=== PATIENT | female | born 1930 | race Caucasian/White ===

== ENCOUNTER 2017-04-26 12:47 | Emergency (ER) | payer MEDICARE, OTHER ==
[~2017-04-26] VITALS: Ht 152.4 cm; Wt 54.5 kg
[~2017-04-26 12:47] MED LIST: AMLO-39 PO; ATOR20TA PO; CIPR-231 PO; ESTR1TAB24 PO; NITR50CA4 PO; NORE0.3513 PO; OMEG-38 PO; OMEP40CA36 PO
[2017-04-26 13:14] VITALS: BP 139/103; PULSE 69; RESP 14; O2SAT 100
--- NOTE | 2017-04-26 14:11 | ED.REPORT ---
HPI-Abd Pain F 40 and Over Date of Service Apr 26, 2017 ED Provider: Ashley Contreras MD Patient is an 86 year old female with a hx of HTN, hyperlipidemia, and recurrent UTI's who presents to the ED complaining of diarrhea onset 4 days ago. Associated symptoms include abdominal cramping. She denies fever, chills, nausea, vomiting, hematochezia, or any other symptoms. She was recently on Cipro for a UTI. She finished this course about a week ago. Nursing Notes Stated Complaint: FREQUENT DIARRHEA Chief Complaint: Female Abdominal Pain Nursing Notes Reviewed: Yes Allergies: Coded Allergies: amoxicillin (Verified Allergy, Unknown, unknown, 04/26/17) benazepril (Unverified Allergy, Unknown, UNKNOWN, 04/15/15) Scheduled Amlodipine (Norvasc) 5 Mg Tablet 5 MG PO DAILY Atorvastatin (Lipitor) 20 Mg Tablet 20 MG PO DAILY Ciprofloxacin (Cipro) 500 Mg Tablet 500 MG PO BID Estradiol (Estradiol) 1 Mg Tablet 1 MG PO DAILY Nitrofurantoin Macrocrystal (Macrodantin) 50 Mg Capsule 50 MG PO DAILY Norethindrone (Margarita) 0.35 Mg Tablet 0.35 MG PO DAILY [place]-3/Dha/Epa/Fish Oil (Fish Oil 1,000 mg Softgel) 1 Each Capsule 1 EACH PO DAILY Omeprazole (Omeprazole) 40 Mg Capsule.dr 40 MG PO DAILY General Time Seen by MD: 14:06 Chief Complaint Diarrhea mild Hx Obtained From: Patient Arrived By: Walk-in Sudden in Onset?: Yes Onset Occurred: 4 days ago Symptom Duration: Since onset Quality: Cramping Severity: Current: Mild Severity: Maximum: Mild Recent Healthcare: Recent doctor visit Risk Factors )( AAA Risk Stratification Hypertension Risk factors reviewed Past Medical History Past Medical History Chronic UTI's Reports: GERD, Hyperlipidemia, Hypertension Past Surgical History Reports: Tonsillectomy Smoking History Smoker Current Status UNK Social History Other Social History: Good social support, Lives alone Ambulatory Status Independent Review of Systems Constitutional: Denies: Chills, Fever GI: Reports: Abdominal pain, Diarrhea, Denies: Hematochezia, Nausea, Vomiting Complete sys rev & neg: except as marked. Physical Exam Vital Signs Vital Signs (First) Date Time Temp Pulse Resp B/P Pulse Ox O2 Delivery O2 Flow Rate FiO2 04/26/17 13:14 36.4 69 14 139/103 100 Room Air Initial VS: Reviewed, Vital signs normal Head / Eyes: Atraumatic, Normocephalic Neck: Supple, Full range of motion Skin: Warm, Dry Neurologic: Alert, Oriented, Nonfocal Psychiatric: Mood/affect normal, Behavior normal, Normal thought content General/Constitutional: Awake, Alert, No acute distress Respiratory / Chest: Atraumatic, Breath sounds NL, Breath sounds = bilat, No respiratory distress Cardiovascular: Heart rate NL, Regular rhythm, Heart sounds NL Abdomen: Atraumatic, Soft, Non-tender, BS normoactive Back: Atraumatic, Inspection NL, No CVA tenderness Interpretation & Diagnostics Interpretation & Diagnostics: stool PCR entirely normal Re-Eval/Medical Decision Med Decision/Clinical Course 86-year-old woman treated with Cipro recently for an uncomplicated UTI. Started having diarrhea which she describes as 2-3 stools a day. Stool was collected today which was loose and not diarrheal. When asked she says "yes this is what she was concerned about". Re-Evaluation/Progress #1: Time of Eval: 14:15 )( Re-Eval Abdomen: Soft Re-Evaluation/Progress Note: Nurse reports that stool sample was soft stool, not diarrhea. Pt reports this sample is consistent with her stools from the fast 4 days. Re-Evaluation/Progress #2: Time of Eval: 14:57 )( Re-Eval Abdomen: Soft Re-Evaluation/Progress Note: Discussed plan for discharge provided sample is nL. Patient understands and agrees with plan. All questions addressed at this time. Counseled Regarding: Diagnosis, Lab results, Need for follow-up, When/why to return to ED Discharge & Departure Primary Impression: Diarrhea Diarrhea type: unspecified type Qualified Code: R19.7 - Diarrhea, unspecified Disposition: Home Discharge Condition All VS Reviewed: Yes Condition: Stable Patient Instructions: Acute Diarrhea (ED) Additional Instructions: Thank you for entrusting us with your care. I believe your diarrhea may be a direct effect of taking antibiotics- not bacteria associated diarrhea. We did not find a dangerous cause for your symptoms at this time. Follow up with your primary doctor if your symptoms do not resolve. I hope you feel better soon! Referrals: Narendra Pompa MD (PCP) Scribe Attestation Portions of this note were transcribed by Christa Arias. I, Dr. Contreras personally performed the history, physical exam and medical decision-making; I reviewed and confirmed the accuracy of the information in the transcribed note. Signed: Arjun Vanegas, 04/26/17 copies to: Narendra Pompa MD, Shawna L MD Apr 26, 2017 14:11 CHRISTA ARIAS Apr 26, 2017 14:18
[2017-04-26 16:06] VITALS: BP 129/62; PULSE 68; RESP 16; O2SAT 97
== END 2017-04-26 16:18 | disposition home or self-care (01) ==
LOC: SED 12:47
DX: R19.7 Diarrhea, unspecified (principal); R10.9 Unspecified abdominal pain; K21.9 Gastro-esophageal reflux disease without esophagitis; E78.5 Hyperlipidemia, unspecified; Z87.440 Personal history of urinary (tract) infections; Z88.1 Allergy status to other antibiotic agents; Z88.8 Allergy status to other drugs, medicaments and biological substances